=== PATIENT | male | born 1980 | race Caucasian/White ===

== ENCOUNTER 2020-07-27 12:14 | Emergency (ER) | payer OTHER ==
[~2020-07-27] VITALS: Ht 172.7 cm; Wt 132.0 kg
[2020-07-27 12:26] VITALS: Ht 172.7 cm; Wt 132.0 kg
[2020-07-27 13:26] VITALS: BP 148/100
== END 2020-07-27 13:26 | disposition home or self-care (01) ==
LOC: ED 12:14
DX: S01.91XD Laceration without foreign body of unspecified part of head, subsequent encounter (principal); X58.XXXD Exposure to other specified factors, subsequent encounter